=== PATIENT | male | born 1960 | race Caucasian/White ===

== ENCOUNTER 2020-09-27 04:41 | Inpatient (IN) | payer OTHER ==
[~2020-09-27] VITALS: Ht 185.4 cm; Wt 88.5 kg
[2020-09-27] MEDS ORDERED: IV NS 0.9% 1,000 ML BAG IV ONE (05:00)
[2020-09-27] MEDS ORDERED: MORPHINE SULFATE INJ 2 MG/ML DISP.SYRIN IV ONE ×2 (05:00→08:30)
[2020-09-27] MEDS ORDERED: ONDANSETRON HCL/PF 4 MG/2 ML VIAL IVP ONE (05:00)
--- NOTE | 2020-09-27 05:00 | NUR ---
PATIENT BIB C/O GENERALIZED ABDOMINAL PAIN RADIATING TO THE FLANK SINCE THURSDAY C/O NAUSEA, DIARRHEA, AND VOMITING. PATIENT A/OX 4 RR EVEN AND UNLABORED, NO SIGNS OF SOB NOTED. PATIENT CONNCETED TO TERMINAL BLOCK ASSEMBLER AND POX.
[2020-09-27] MEDS ORDERED: ONDANSETRON HCL/PF 4 MG/2 ML VIAL ONE ×2 (05:02→08:40)
[2020-09-27] MEDS ORDERED: MORPHINE SULFATE INJ 4 MG/ML DISP.SYRIN ONE ×2 (05:02→08:31)
--- NOTE | 2020-09-27 05:03 | NUR ---
URINE COLLECTED ANND SENT TO THE LAB
[2020-09-27 05:07] LABS: BILIRUBIN,URINE MODERATE (NEGATIVE); COLOR,URINE AMBER (YELLOW); LEUKOCYTE ESTERASE ,URINE Negative (NEGATIVE); NITRITE, URINE Negative (NEGATIVE); PH,URINE 5.5 (5.0-8.0); PROTEIN,URINE 100 mg/dl (NEGATIVE); UGLUCOSE Negative (NEGATIVE); UROBILINOGEN,URINE 0.2 EU/dL (0.2)
[2020-09-27 05:11] LABS: BASOPHILS % (AUTO) 0.2 % (0.0-2.0); EOSINOPHILS % (AUTO) 0.6 % (0.0-6.0); HEMATOCRIT 50 % (39-51); HEMOGLOBIN 17.4 g/dL (13.5-17.5); LYMPHOCYTES # (AUTO) 0.7 K/uL (0.8-4.8); LYMPHOCYTES % (AUTO) 12.2 % (20.0-44.0); MEAN CORPUSCULAR HGB CONC 35 g/dl (31.0-36.0); MEAN CORPUSCULAR VOLUME 90 fL (80-96); MONOCYTES # (AUTO) 0.9 K/uL (0.1-1.30); MONOCYTES % (AUTO) 14.9 % (2.0-12.0); NEUTROPHILS # (AUTO) 4.3 K/uL (1.8-8.9); NEUTROPHILS % (AUTO) 72.1 % (43.0-81.0); PLATELET COUNT (AUTO) 181 K/uL (150-450); RED BLOOD CELL COUNT(AUTO) 5.54 MIL/uL (4.5-6.0)
[2020-09-27 05:26] LABS: ALANINE AMINOTRANSFERASE 24 U/L (12-78); ALBUMIN 3.8 g/dL (3.4-5.0); ALKALINE PHOSPHATASE 57 U/L (46-116); ASPARTATE AMINOTRANSFERASE 17 U/L (15-37); BILIRUBIN,DIRECT 0.3 mg/dL (0.0-0.2); BILIRUBIN,TOTAL 1.3 mg/dL (0.2-1.0); CARBON DIOXIDE 25 mmol/L (21-32); CHLORIDE 95 mmol/L (98-107); CREATININE 1.1 mg/dL (0.6-1.3); GLUCOSE 144 mg/dL (74-106); LIPASE 67 U/L (73-393); POTASSIUM 3.7 mmol/L (3.5-5.1); SODIUM SERUM 133 mmol/L (136-145); TOTAL PROTEIN, SERUM 7.3 g/dL (6.4-8.2); UREA NITROGEN, BLOOD 16 mg/dL (7-18)
[2020-09-27 05:30] LABS: CALCIUM, SERUM 8.8 mg/dL (8.5-10.1)
--- NOTE | 2020-09-27 05:47 | NUR ---
PATIENT TAKEN TO CT
--- NOTE | 2020-09-27 05:53 | NUR ---
PATIENT RETURNED FROM CT
--- NOTE | 2020-09-27 06:44 | NUR ---
COVID SWAB COLLECTED AND SENT TO LAB
--- NOTE | 2020-09-27 07:05 | NUR ---
move sheet and clinincals were submitted to the admitting
--- NOTE | 2020-09-27 08:16 | NUR ---
panel on-call paged
--- NOTE | 2020-09-27 08:20 | NUR ---
johanna barnes called for bed,unable to admit,no bed at this time
--- NOTE | 2020-09-27 08:22 | NUR ---
dr bryan barajas. speaking to dr garcia.
--- NOTE | 2020-09-27 08:50 | NUR ---
Instered NG tube Fr #14, davidson is at 60.
[2020-09-27] MEDS ORDERED: ONDANSETRON HCL/PF - ER 4 MG/2 ML VIAL IV ONE (09:00)
--- NOTE | 2020-09-27 09:14 | NUR ---
johanna Jimenez called for bed,unable to admit,no bed at this time
[2020-09-27] MEDS ORDERED: ASPI-1169 PO (09:40)
[2020-09-27] MEDS ORDERED: MULT-447 PO (09:40)
--- NOTE | 2020-09-27 09:45 | NUR ---
Per Dr Carvajal the NG tube is in place and ok to use.
[2020-09-27] MEDS ORDERED: MAGNESIUM HYDROXIDE 30 ML UDC PO PRN (10:00)
[2020-09-27] MEDS ORDERED: Z GUARD REMEDY 2 OZ OINT TP PRN (10:00)
[2020-09-27] MEDS ORDERED: MAG HYDROX/AL HYDROX/SIMETH 30 ML UDC PO PRN (10:00)
[2020-09-27] MEDS ORDERED: ONDANSETRON HCL/PF 4 MG/2 ML VIAL IVP PRN (10:00)
[2020-09-27] MEDS ORDERED: ACETAMINOPHEN 325 MG TABLET PO PRN (10:00)
--- NOTE | 2020-09-27 11:44 | NUR ---
report given to Torres DORMAN, continue plan of care.
--- NOTE | 2020-09-27 12:15 | NUR ---
RN NOTES PATIENT TRANSFERR[facility] UNIT AT ROOM 307[facility] ACCOMPANIED BY 2 ER NURSES.
[2020-09-27 12:30] VITALS: BP 123/72
--- NOTE | 2020-09-27 12:40 | NUR ---
RN NOTES PATIENT NOTED W/ NGT INTACT AND PATENT; ATTACHED TO LOW INTERMITTENT SUCTION. NO COMPLAINT OF NAUSEA/VOMITING AT THIS TIME.
[2020-09-27 16:00] VITALS: BP 123/68
[2020-09-27] MEDS: PANTOPRAZOLE 40 MG VIAL IV SCH (16:51)
[2020-09-27 17:36] LABS: ALBUMIN 3.3 g/dL (3.4-5.0); BILIRUBIN,TOTAL 1.1 mg/dL (0.2-1.0); CALCIUM, SERUM 8.5 mg/dL (8.5-10.1); CREATININE 1.1 mg/dL (0.6-1.3); POTASSIUM 3.9 mmol/L (3.5-5.1); TOTAL PROTEIN, SERUM 6.6 g/dL (6.4-8.2)
--- NOTE | 2020-09-27 18:28 | NUR ---
RN NOTES ADMITTED THIS 60-YEAR-OLD MALE FROM HOME, PRESENTING TO THE ER W/ COMPLAINT OF ABDOMINAL PAIN. A/O X4, GHANAIAN-SPEAKING, BUT UNDERSTANDS YEMENI. ADMITTING DIAGNOSIS OF PARTIAL SBO, W/ NGT IN PLACE TO LOW INTERMITTENT SUCTION, NOTED W/ GREENISH ASPIRATE. NO COMPLAINT OF NAUSEA/VOMITING AT THIS TIME. IV LINE ON LFA #20 INTACT AND PATENT, IVF OF NS AT 75ML/HR INFUSING WELL. PATIENT IS AMBULATORY W/ STEADY GAIT, NO SKIN ISSUES. ORIENTED PATIENT TO USE OF CALL LIGHT BUTTON FOR STAFF ASSISTANCE. SAFETY MEASURES IN PLACE. WILL ENDORSE TO SOCIAL WORK LECTURER RN FOR SURINDER.
[2020-09-27] MEDS: MORPHINE SULFATE INJ 2 MG/ML DISP.SYRIN IV PRN ×2 (18:37→23:13)
[2020-09-27 20:00] VITALS: BP 136/76
[2020-09-27] MEDS: ENOXAPARIN SODIUM 40 MG/0.4 ML DISP.SYRIN SQ SCH (20:02)
[2020-09-27] MEDS: IV NS 0.9% 1,000 ML IV PRN (20:07)
--- NOTE | 2020-09-28 07:38 | NUR ---
RN OPENING NOTE RECEIVED PATIENT AWAKE ALERT AND ORIENTED X 4. PATIENT IS IN ROOM AIR SATURATING WELL. PATIENT IN NO APPARENT RESPIRATORY DISTRESS NOTED. NO COMPLAINED OF PAIN NOTED AT THIS TIME. NGT AT RIGHT NARES FOR LOW INTERMITTENT SUCTION. WILL CONTINUE TO MONITOR.
[2020-09-28 08:00] VITALS: BP 122/82
[2020-09-28] MEDS: PANTOPRAZOLE 40 MG VIAL IV SCH (08:32)
[2020-09-28] MEDS: ENOXAPARIN SODIUM 40 MG/0.4 ML DISP.SYRIN SQ SCH (09:19)
[2020-09-28] MEDS: IV NS 0.9% 1,000 ML IV PRN (14:08)
[2020-09-28 16:00] VITALS: BP 117/70
[2020-09-28 16:23] VITALS: BP 117/70
[2020-09-28] MEDS: MORPHINE SULFATE INJ 2 MG/ML DISP.SYRIN IV PRN ×2 (19:15→23:35)
--- NOTE | 2020-09-28 19:35 | NUR ---
MS/RN CLOSING NOTES PATIENT IS ON BED, AWAKE ALERT AND ORIENTED X4. PATIENT IN ROOM AIR SAO2 96% SATURATING WELL. PATIENT IN NO APPARENT RESPIRATORY DISTRESS NOTED. NO COMPLAINED OF PAIN NOTED AT THIS TIME. SEEN AND EXAMINED BY MD WITH ORDERS MADE AND CARRIED OUT. ALL DUE MEDICATIONS WAS GIVEN. IV ACCESS AT LEFT FOREARM #20 G WITH IV FLUID OF NS1L AT 75ML/HR ON AND INFUSING WELL. SAFETY PRECAUTIONS WAS IN PLACED. BED IN LOWEST POSITION AND LOCKED. SIDE RAILS UP X2. CALL LIGHT WITHIN REACH. WILL ENDORSED TO VENDING MACHINE COIN COLLECTOR FOR SURINDER.
[2020-09-28 20:49] VITALS: BP 100/69
[2020-09-29] MEDS: IV NS 0.9% 1,000 ML IV PRN ×2 (03:44→16:10)
[2020-09-29] MEDS: MORPHINE SULFATE INJ 2 MG/ML DISP.SYRIN IV PRN (06:38)
[2020-09-29 08:00] VITALS: BP 116/64
--- NOTE | 2020-09-29 08:06 | NUR ---
MS RN OPENING NOTE PATIENT IS IN BED RESTING. PATIENT IS IN NO ACUTE DISTRESS. PATIENT IS ON ROOM AIR SATURATING WELL. PATIENT HAS NG-TUBE IN THE LOW SUCTION. SAFETY PRECAUTIONS ARE ON, BED IS LOCKED IN THE LOWEST POSITION WITH SIDE RAILS UP. CALL LIGHT WITHIN REACH, CONTINUE TO MONITOR CLOSELY.
[2020-09-29] MEDS: PANTOPRAZOLE 40 MG VIAL IV SCH (10:17)
[2020-09-29] MEDS: ENOXAPARIN SODIUM 40 MG/0.4 ML DISP.SYRIN SQ SCH (10:19)
[2020-09-29] MEDS ORDERED: DIATR MEGLU/DIATRIZOATE SODIUM 120 ML BOTTLE (GASTROGRAPHIN) ONE (10:52)
[2020-09-29 16:00] VITALS: BP 130/73
--- NOTE | 2020-09-29 18:45 | NUR ---
MS RN CLOSING NOTE PATIENT IS IN BED RESTING. PATIENT IS IN NO ACUTE DISTRESS. PATIENT IS ON ROOM AIR SATURATING WELL. PATIENTS NG-TUBE IS DC. SAFETY PRECAUTIONS ARE ON, BED IS LOCKED IN THE LOWEST POSITION WITH SIDE RAILS UP. CALL LIGHT WITHIN REACH, ENDORSE PATIENT TO RECREATIONAL ASSISTANT NURSE FOR SURINDER.
--- NOTE | 2020-09-29 19:45 | NUR ---
MS RN NOTES PATIENT IN BED, USING PHONE. A/OX4. NO S/S OF APPARENT DISTRESS. NO C/O PAIN AT THIS TIME. IV NS @ 75 CC/HR. SAFETY IN PLACE: BED IN LOWEST, LOCKED POSITION; CALL LIGHT WITHIN REACH. WILL CONTINUE TO MONITOR.
[2020-09-29 20:00] VITALS: BP_SYST 114; BP_SYST 121; BP_DIAS 72; BP_DIAS 74
--- NOTE | 2020-09-30 07:09 | NUR ---
MS RN CLOSING NO SIGNIFICANT CHANGE SINCE LAST SHIFT. WILL ENDORSE CARE TO MORNING SHIFT RN.
[2020-09-30 08:00] VITALS: BP 113/73
[2020-09-30] MEDS: ENOXAPARIN SODIUM 40 MG/0.4 ML DISP.SYRIN SQ SCH (09:09)
[2020-09-30] MEDS: PANTOPRAZOLE 40 MG TABLET.DR PO SCH (09:09)
--- NOTE | 2020-09-30 10:45 | NUR ---
RN NOTE DR KELLY ORDERED TO KEEP THE PATIENT ON NPO AND TO OBTAIN A PROCEDURE CONSENT OF DIAGNOSTIC LAPAROSCOPY TO RELIEVE SMALL BOWEL OBSTRUCTION WITH POSSIBLE EXPLORATORY LAPAROTOMY.
[2020-09-30] MEDS ORDERED: BUPIVACAINE MPF 0.5% W/EPI INJ 30 ML VIAL ONE (14:04)
[2020-09-30] MEDS ORDERED: LIDOCAINE 1% INJ 50 ML MDV IJ ONE (14:04)
[2020-09-30] MEDS ORDERED: ANESTHESIA TRAY IN PYXIS 1 EA TRAY MC ONE (14:05)
[2020-09-30] MEDS ORDERED: FENTANYL PF 100MCG/2ML AMPUL ONE (14:21)
[2020-09-30] MEDS ORDERED: BACITRACIN OPHTH OINT 3.5 GM TUBE ONE (16:55)
[2020-09-30] MEDS ORDERED: HYDROMORPHONE 1 MG/1 ML DISP.SYRIN ONE (17:17)
[2020-09-30] MEDS ORDERED: IV LR 1000 ML 1,000 ML IV PRN (18:30)
--- NOTE | 2020-09-30 19:15 | NUR ---
MSRN LEFT ARM SWOLLEN, IVHL OUT. RESTARTED BY OUTGOING RN 22 GAUGE ON LEFT WRIST.
[2020-09-30] MEDS: GABAPENTIN 300 MG CAPSULE PO SCH (19:30)
[2020-09-30] MEDS: IBUPROFEN 400 MG TABLET PO SCH (19:30)
[2020-09-30] MEDS: ACETAMINOPHEN 325 MG TABLET PO SCH (19:30)
--- NOTE | 2020-09-30 19:30 | NUR ---
MSRN FULLY AWAKE, AT BEDSIDE.PATIENT STATES HIS PAIN IS TOLERABLE AND WILL WAIT FOR AWHILE FOR PAIN MED. REFUSED TO TAKE MOTRIN,TYLENOL/NEURONTIN, COMBINATION ORDERED BY SURGEON. STATED WILL TAKE THEM TOMORROW INSTEAD WHEN ALLOWED TO HAVE REGULAR DIET. PER CAN GIVE MORPHINE 2 MG IVP BEFORE PATIENT SLEEPS AND PATIENT AGREES.ALL NEEDS ATTENDED CONTINUED MONITORING.
[2020-09-30 20:00] VITALS: BP 113/69
[2020-09-30] MEDS: MORPHINE SULFATE INJ 2 MG/ML DISP.SYRIN IV PRN (20:08)
--- NOTE | 2020-09-30 20:40 | NUR ---
MSRN ADMINISTERED MORPHINE 2MG IVP AT THIS TIME. ABOUT TO LEAVE.
--- NOTE | 2020-09-30 20:40 | NUR ---
MSRN IV LEAKING, RESTARTED 22 GAUGE ON RIGHT WRIST WITH GOOD BLOOD RETURN. PRESENT IVF INFUSING WELL.
[2020-10-01] MEDS: MORPHINE SULFATE INJ 2 MG/ML DISP.SYRIN IV PRN ×3 (00:17→10:21)
--- NOTE | 2020-10-01 00:20 | NUR ---
MSRN AWAKENED WITH ABD PAIN MORPHINE 2MG IVP ADMINISTERED. NO THER NEEDS MADE,
--- NOTE | 2020-10-01 04:35 | NUR ---
MSRN CALLED FOR PAIN MED, MORPHINE GIVEN ORDERED. V/S REMAINS STABLE. NO N/V. IVF CONTINUED
[2020-10-01] MEDS: ACETAMINOPHEN 325 MG TABLET PO SCH ×2 (05:00→12:54)
[2020-10-01] MEDS: GABAPENTIN 300 MG CAPSULE PO SCH ×2 (05:00→12:54)
[2020-10-01] MEDS: IBUPROFEN 400 MG TABLET PO SCH ×2 (05:00→12:54)
[2020-10-01 06:31] LABS: BASOPHILS % (AUTO) 0.3 % (0.0-2.0); EOSINOPHILS % (AUTO) 0.1 % (0.0-6.0); HEMATOCRIT 42 % (39-51); HEMOGLOBIN 14.9 g/dL (13.5-17.5); LYMPHOCYTES # (AUTO) 0.7 K/uL (0.8-4.8); LYMPHOCYTES % (AUTO) 9.2 % (20.0-44.0); MEAN CORPUSCULAR HGB CONC 36 g/dl (31.0-36.0); MEAN CORPUSCULAR VOLUME 88 fL (80-96); MONOCYTES # (AUTO) 0.6 K/uL (0.1-1.30); MONOCYTES % (AUTO) 8.7 % (2.0-12.0); NEUTROPHILS # (AUTO) 5.9 K/uL (1.8-8.9); NEUTROPHILS % (AUTO) 81.7 % (43.0-81.0); PLATELET COUNT (AUTO) 215 K/uL (150-450); RED BLOOD CELL COUNT(AUTO) 4.76 MIL/uL (4.5-6.0); WHITE BLOOD COUNT (AUTO) 7.2 K/uL (4.3-11.0)
[2020-10-01 06:36] LABS: CALCIUM, SERUM 8.1 mg/dL (8.5-10.1); CREATININE 0.8 mg/dL (0.6-1.3); MAGNESIUM 1.7 mg/dL (1.8-2.4); PHOSPHORUS 3.9 mg/dL (2.5-4.9); POTASSIUM 3.3 mmol/L (3.5-5.1)
[2020-10-01] MEDS: PANTOPRAZOLE 40 MG TABLET.DR PO SCH (07:24)
--- NOTE | 2020-10-01 07:29 | NUR ---
MS RN OPENING NOTES PATIENT RECEIVED AWAKE IN BED IN NO ACUTE SIGNS OF DISTRESS. A/O X4. ABLE TO MAKE NEEDS KNOWN, DENIES PAIN OR ANY DISCOMFORTS AT THIS TIME. ON ROOM AIR, BREATHING EVEN AND UNLABORED. IV ACCESS ON RIGHT WRIST #22 PATENT AND INTACT, IVF OF LACTATED RANGER @100 MLS/HR INFUSING WELL, NO S/S OF INFILTRATION AT SITE NOTED. SAFETY MEASURES IN PLACE: BED LOCKED AND AT LOWEST POSITION, SIDE-RAILS UP X2. CALL LIGHT WITH EASY REACH OF PT. WILL CONTINUE TO MONITOR PT.
[2020-10-01 08:00] VITALS: BP 110/67
[2020-10-01] MEDS ORDERED: POTASSIUM CHLORIDE 20 MEQ TAB.PRT.SR PO SCH (08:30)
[2020-10-01] MEDS ORDERED: POTASSIUM CHLORIDE 20 MEQ TAB.PRT.SR PO STA (08:32)
[2020-10-01] MEDS ORDERED: MAGNESIUM OXIDE 400 MG TABLET PO STA (08:32)
[2020-10-01] MEDS ORDERED: Magnesium 1GM/D5W 100ML PREMIX 100 ML IV SCH (09:00)
[2020-10-01] MEDS: ENOXAPARIN SODIUM 40 MG/0.4 ML DISP.SYRIN SQ SCH (09:10)
[2020-10-01] MEDS: Magnesium 1GM/D5W 100ML PREMIX 100 ML IV SCH ×2 (10:15→11:21)
[2020-10-01] MEDS ORDERED: HYDR-3976 GT (10:24)
--- NOTE | 2020-10-01 14:35 | NUR ---
RN DISCHARGED NOTES PT DISCHARGED HOME IN STABLE CONDITION. PT IS A/O X4. ABLE TO MAKE NEEDS KNOWN. V/S TAKEN, STABLE AND RECORDED. PT WITH DRESSINGS TO ABDOMEN C/D/I, PER DR. KELLY TO LEAVE DRESSINGS IN PLACE UNTIL HE SEES PT IN ONE WEEK AT HIS CLINIC. PT VERBALIZED UNDERSTANDING OF INSTRUCTIONS. HEALTH TEACHINGS/DISCHARGE INSTRUCTIONS GIVEN TO PT AND VERBALIZED UNDERSTANDING. PT LEFT UNIT VIA WHEELCHAIR AT 1425 . ACCOMPANIED BY MAR MCKINNEY AND PT'S MISSY. CHARGE NURSE AWARE OF DISCHARGE.
== END 2020-10-01 14:15 | disposition home or self-care (01) | DRG 228 ==
LOC: ER 04:47 → MED 12:03
PROVIDERS: ADMIT Internal Medicine; ATTEND Internal Medicine
PROC: 0YQ64ZZ Repair Left Inguinal Region, Percutaneous Endoscopic Approach (ICD-10-PCS; principal; 2020-09-30)
PROC: 0DNE4ZZ Release Large Intestine, Percutaneous Endoscopic Approach (ICD-10-PCS; 2020-09-30)
PROC: 0WP Anatomical Regions, General, Removal (ICD-10-PCS; 2020-09-30)
DX: K40.31 Unilateral inguinal hernia, with obstruction, without gangrene, recurrent (principal); E87.1 Hypo-osmolality and hyponatremia; E87.8 Other disorders of electrolyte and fluid balance, not elsewhere classified; Z20.822 Contact with and (suspected) exposure to COVID-19
CPT/HCPCS: 36415; 71045-TC; 74250-TC; 80048-TC; 80053-TC; 80076-TC; 83605-TC; 83690-TC; 83735-TC; 84100-TC; 84484-TC; 85025-TC; 87081-TC; 88302-TC; 93307-TC; C9113; C9803; G0378; J0690; J1100; J1170; J1650; J2270; J2405; J2704; J3010; J3475; J3490; J7030; J7120; Q9963